=== PATIENT | female | born 1970 | race African-American/Black ===

== ENCOUNTER 2017-04-24 19:58 | Emergency (ER) | payer BC, MEDICARE ==
[2017-04-24 20:13] VITALS: RESP 18
[2017-04-24] MEDS ORDERED: ONDANSETRON ODT 8 MG TAB.RAPDIS PO STA (20:56)
[2017-04-24] MEDS ORDERED: SODIUM CHLORIDE 0.9% 1,000 ML IV STA (21:35)
[2017-04-24] MEDS ORDERED: ACETAMINOPHEN TAB 500 MG TAB PO STA (21:35)
[2017-04-24 21:36] LABS: Appearance,Urine Cloudy (Clear); Bilirubin,Urine Negative (Negative); Blood,Urine Small (Negative); Color,Urine Yellow; Glucose,Urine (UA) Negative (Negative); Ketones,Urine Trace (Negative); Leukocyte Esterase,Urine Negative (Negative); Mucus,Urine Rare /hpf; Protein,Urine 1+ (Negative); RBC,Urine 13 /hpf (0-5); Specific Gravity,Urine 1.016 (1.001-1.035); Squamous Epithelial Cell,Urine 13 /hpf (0-4); WBC,Urine 1 /hpf (0-5)
[2017-04-24 21:39] LABS: Basophils % (A) 0 %; Eosinophils # (A) 0.1 k/uL (0-0.7); Eosinophils % (A) 2 %; HCT 34.9 % (34.0-46.0); HGB 11.7 gm/dL (11.4-16.0); Lymphocytes # (A) 0.5 k/uL (1.0-4.8); Lymphocytes % (A) 11 %; MCH 31.1 pg (25.0-35.0); MCHC 33.6 g/dL (31.0-37.0); MCV 92.5 fL (80.0-100.0); Mean Platelet Volume 8.9; Monocytes # (A) 0.2 k/uL (0-1.0); Monocytes % (A) 4 %; Neutrophils # (A) 3.7 k/uL (1.3-7.7); Neutrophils % (A) 82 %; RBC 3.78 m/uL (3.80-5.40); RDW 12.3 % (11.5-15.5); WBC 4.6 k/uL (3.8-10.6)
--- NOTE | 2017-04-24 21:42 | ED ---
General Adult HPI - General Source: patient Mode of arrival: wheelchair Limitations: no limitations <Phoenix Lopez - Last Filed: 04/25/17 00:14> <Blas Morales - Last Filed: 04/25/17 07:08> - General Chief complaint: Abdominal Pain Stated complaint: vomiting Time Seen by Provider: 04/24/17 20:25 - History of Present Illness Initial comments: 47 year old female patient presents for chief complaint of epigastric abdominal pain for 3 hours. Patient states she felt nauseous preceding the pain, and then the pain started at 5pm. Patient states she vomited 5 times at home since this time. At this time she also felt feverish and had chills. Patient denies any pain in the back. Patient denies a history of gastric ulcers, cholecystitis, or liver disease. Patient states she does have a history of IBS but states she usually feels the pain lower in the abdomen. Patient denies any recent diarrhea , constipation, or blood in stool. Patient denies any other history of abdominal disease or family history of abdominal disease. Patient also states she's had a productive cough for the past 2 days. Patient states there are many people sick at work. She denies any shortness of breath or chest pain. Patient denies sore throat but does admit to some sinus congestion, which is causing her headache. Patient denies dizziness or lightheadedness. (Phoenix Lopez) - Related Data Home Medications Medication Instructions Recorded Confirmed Clindamycin HCl [Cleocin] 300 mg PO Q8H 04/24/17 04/24/17 Fluticasone/Vilanterol [Breo 1 puff INHALATION RT-DAILY 04/24/17 04/24/17 Ellipta 200-25 Mcg INH] guaiFENesin [Mucinex] 600 mg PO Q12H 04/24/17 04/24/17 methylPREDNISolone Dose Pack See Taper PO DAILY 04/24/17 04/24/17 [Medrol Dose Pack] Allergies Allergy/AdvReac Type Severity Reaction Status Date / Time cat dander Allergy Unknown Verified 04/24/17 21:26 fish derived Allergy Rash/Hives Verified 04/24/17 21:26 shellfish derived Allergy Anaphylaxis Verified 04/24/17 21:26 tramadol Allergy Itching Verified 04/24/17 21:26 Review of Systems ROS Other: All systems not noted in ROS Statement are negative. <Phoenix Lopez Mary - Last Filed: 04/25/17 00:14> ROS Other: All systems not noted in ROS Statement are negative. <Blas Morales - Last Filed: 04/25/17 07:08> ROS Statement: Those systems with pertinent positive or pertinent negative responses have been documented in the HPI. Past Medical History Past Medical History: Asthma, GERD/Reflux Additional Past Medical History / Comment(s): irritable bowel syndrome, arthriposis History of Any Multi-Drug Resistant Organisms: None Reported Past Surgical History: Tubal Ligation Additional Past Surgical History / Comment(s): Missing bicep muscles bilaterally 1974. Muscle was removed from stomach. EGD and colonoscopy 2013. Past Anesthesia/Blood Transfusion Reactions: No Reported Reaction Past Psychological History: No Psychological Hx Reported Smoking Status: Never smoker Past Alcohol Use History: None Reported Past Drug Use History: None Reported - Past Family History Father Family Medical History: Cancer <JohnAmandaPhoenix P - Last Filed: 04/25/17 00:14> General Exam Limitations: no limitations General appearance: alert, in no apparent distress Head exam: Present: atraumatic, normocephalic, normal inspection Eye exam: Absent: scleral icterus, conjunctival injection, periorbital swelling ENT exam: Present: normal exam, mucous membranes moist Neck exam: Present: normal inspection. Absent: tenderness, meningismus, lymphadenopathy Respiratory exam: Present: normal lung sounds bilaterally. Absent: respiratory distress, wheezes, rales, rhonchi, stridor Cardiovascular Exam: Present: regular rate, normal rhythm, normal heart sounds. Absent: systolic murmur, diastolic murmur, rubs, gallop, clicks GI/Abdominal exam: Present: soft, tenderness (Tenderness to palpation in the mid -epigastric region as well as the RUQ/LUQ. ), normal bowel sounds. Absent: distended, guarding, rebound, rigid Back exam: Present: normal inspection. Absent: CVA tenderness (R), CVA tenderness (L) Neurological exam: Present: alert, oriented X3, CN II-XII intact Psychiatric exam: Present: normal affect, normal mood Skin exam: Present: warm, dry, intact, normal color. Absent: rash <JohnPhoenix chilel Mary - Last Filed: 04/25/17 00:14> Vital Signs 04/24/17 04/24/17 04/24/17 20:05 21:35 23:46 Temperature 100.9 F H 101.3 F H 99.4 F Pulse Rate 109 H 97 95 Respiratory 18 18 Rate Blood Pressure 184/104 156/94 163/95 O2 Sat by Pulse 98 96 97 Oximetry Medical Decision Making - Lab Data Result diagrams: 04/24/17 21:10 04/24/17 21:10 <Phoenix Lopez - Last Filed: 04/25/17 00:14> - Lab Data Result diagrams: 04/24/17 21:10 04/24/17 21:10 <Blas Morales - Last Filed: 04/25/17 07:08> - Medical Decision Making 47-year-old female presents to the emergency department for abdominal pain 3 hours. Patient states she felt nauseous throughout the day and the pain came on suddenly around 5 PM. It started in the mid epigastric area and is also in the left and right upper quadrant. Patient states she has not experienced this pain before. She did vomit 5 times this evening and felt feverish and had chills. She has had a cough for the past 2 days as well. The cough is productive with yellow sputum. She states many people are sick at work. She denies shortness of breath or chest pain. Patient was given 4 mg of Zofran and a gram of Tylenol to help with the fever and nausea. 30 mg of Toradol was given for the pain in her abdomen as well as a headache she developed. Dr. Morales was consulted about this. She was also started on IV saline to treat for any dehydration due to vomiting. A chest x-ray was ordered to rule out pneumonia which came back within normal limits. Labs were ordered which showed a normal white count, as well as AST, ALTs, lipase within normal limits. CBC did show a platelet count of 50,000. Patient denies any lightheadedness or dizziness. Because of the nature of the presenting abdominal pain an ultrasound was ordered to scan her gallbladder which showed normal results. Patient's UA does show red blood cells. Patient denies any back or flank pain. Patient states she does not notice any blood in the toilet bowl but does notice it on the toilet paper. Patient believes she is spotting with menstrual blood as her periods are irregular and it is common for her to spot. A flu swab was ordered which came back positive for influenza A. It is likely that her symptoms are related to having the flu. Patient will be discharged with a directions of rest, drinking fluids to remain hydrated, and taking Tylenol to control the fever. Patient was not given Tamiflu as it has been shown to increase vomiting with minimal benefits. Patient agrees to follow up with primary care physician in 1-2 days for thrombocytopenia, flu symptoms, and abdominal pain. Patient was also told that the antibiotics and steroid given to her by a different provider will not help with symptoms of the flu and may make vomiting worse. Patient is also educated on using tylenol instead of ibuprofen due to thrombocytopenia. If symptoms worsen she is to return to the emergency department. (Phoenix Lopez) I saw this patient in conjunction with the physician assistant grocery store manager. I performed independent history and physical exam. Agree with case management. (Blas Morales) - Lab Data Lab Results 04/24/17 04/24/17 04/24/17 Range/Units 21:10 21:10 21:10 WBC 4.6 (3.8-10.6) k/uL RBC 3.78 L (3.80-5.40) m/uL Hgb 11.7 (11.4-16.0) gm/dL Hct 34.9 (34.0-46.0) % MCV 92.5 (80.0-100.0) fL MCH 31.1 (25.0-35.0) pg MCHC 33.6 (31.0-37.0) g/dL RDW 12.3 (11.5-15.5) % Plt Count 50 L* (150-450) k/uL Neutrophils % 82 % Lymphocytes % 11 % Monocytes % 4 % Eosinophils % 2 % Basophils % 0 % Neutrophils # 3.7 (1.3-7.7) k/uL Lymphocytes # 0.5 L (1.0-4.8) k/uL Monocytes # 0.2 (0-1.0) k/uL Eosinophils # 0.1 (0-0.7) k/uL Basophils # 0.0 (0-0.2) k/uL Sodium 134 L (137-145) mmol/L Potassium 4.3 (3.5-5.1) mmol/L Chloride 100 (98-107) mmol/L Carbon Dioxide 25 (22-30) mmol/L Anion Gap 9 mmol/L BUN 10 (7-17) mg/dL Creatinine 0.59 (0.52-1.04) mg/dL Est GFR (CKD-EPI)AfAm >90 (>60 ml/min/1.73 sqM) Est GFR (CKD-EPI)NonAf >90 (>60 ml/min/1.73 sqM) Glucose 116 H (74-99) mg/dL Calcium 9.5 (8.4-10.2) mg/dL Total Bilirubin 0.6 (0.2-1.3) mg/dL AST 26 (14-36) U/L ALT 26 (9-52) U/L Alkaline Phosphatase 89 (38-126) U/L Total Protein 7.6 (6.3-8.2) g/dL Albumin 4.0 (3.5-5.0) g/dL Amylase (30-110) U/L Lipase 71 (23-300) U/L Urine Color Yellow Urine Appearance Cloudy H (Clear) Urine pH 8.0 (5.0-8.0) Ur Specific Ripley 1.016 (1.001-1.035) Urine Protein 1+ H (Negative) Urine Glucose (UA) Negative (Negative) Urine Ketones Trace H (Negative) Urine Blood Small H (Negative) Urine Nitrite Negative (Negative) Urine Bilirubin Negative (Negative) Urine Urobilinogen 2.0 (<2.0) mg/dL Ur Leukocyte Esterase Negative (Negative) Urine RBC 13 H (0-5) /hpf Urine WBC 1 (0-5) /hpf Ur Squamous Epith Cells 13 H (0-4) /hpf Urine Mucus Rare H (None) /hpf Urine HCG, Qual (Not Detectd) Influenza Type A RNA (Not Detectd) Influenza Type B (PCR) (Not Detectd) 04/24/17 04/24/17 04/24/17 Range/Units 21:10 21:10 22:33 WBC (3.8-10.6) k/uL RBC (3.80-5.40) m/uL Hgb (11.4-16.0) gm/dL Hct (34.0-46.0) % MCV (80.0-100.0) fL MCH (25.0-35.0) pg MCHC (31.0-37.0) g/dL RDW (11.5-15.5) % Plt Count (150-450) k/uL Neutrophils % % Lymphocytes % % Monocytes % % Eosinophils % % Basophils % % Neutrophils # (1.3-7.7) k/uL Lymphocytes # (1.0-4.8) k/uL Monocytes # (0-1.0) k/uL Eosinophils # (0-0.7) k/uL Basophils # (0-0.2) k/uL Sodium (137-145) mmol/L Potassium (3.5-5.1) mmol/L Chloride (98-107) mmol/L Carbon Dioxide (22-30) mmol/L Anion Gap mmol/L BUN (7-17) mg/dL Creatinine (0.52-1.04) mg/dL Est GFR (CKD-EPI)AfAm (>60 ml/min/1.73 sqM) Est GFR (CKD-EPI)NonAf (>60 ml/min/1.73 sqM) Glucose (74-99) mg/dL Calcium (8.4-10.2) mg/dL Total Bilirubin (0.2-1.3) mg/dL AST (14-36) U/L ALT (9-52) U/L Alkaline Phosphatase (38-126) U/L Total Protein (6.3-8.2) g/dL Albumin (3.5-5.0) g/dL Amylase 57 (30-110) U/L Lipase (23-300) U/L Urine Color Urine Appearance (Clear) Urine pH (5.0-8.0) Ur Specific Ripley (1.001-1.035) Urine Protein (Negative) Urine Glucose (UA) (Negative) Urine Ketones (Negative) Urine Blood (Negative) Urine Nitrite (Negative) Urine Bilirubin (Negative) Urine Urobilinogen (<2.0) mg/dL Ur Leukocyte Esterase (Negative) Urine RBC (0-5) /hpf Urine WBC (0-5) /hpf Ur Squamous Epith Cells (0-4) /hpf Urine Mucus (None) /hpf Urine HCG, Qual Not Detected (Not Detectd) Influenza Type A RNA Detected H (Not Detectd) Influenza Type B (PCR) Not Detected (Not Detectd) Disposition Time of Disposition: 23:57 <Phoenix Lopez - Last Filed: 04/25/17 00:14> <Blas Morales - Last Filed: 04/25/17 07:08> Clinical Impression: Influenza A Disposition: HOME SELF-CARE Condition: Good Instructions: Influenza (ED) Additional Instructions: Please take Tylenol for pain relief and has a fever loss mitigation specialist. Please follow up with primary care provider regarding thrombocytopenia, abdominal pain, and flu symptoms. If symptoms worsen, please return to the emergency department. Referrals: Yamini Cerda MD [Primary Care Provider] - 1-2 days
[2017-04-24 21:43] LABS: ALT 26 U/L (9-52); AST 26 U/L (14-36); Alkaline Phosphatase 89 U/L (38-126); Anion Gap 9 mmol/L; Blood Urea Nitrogen 10 mg/dL (7-17); Calcium 9.5 mg/dL (8.4-10.2); Carbon Dioxide 25 mmol/L (22-30); Chloride 100 mmol/L (98-107); Glucose 116 mg/dL (74-99); Lipase 71 U/L (23-300); Potassium 4.3 mmol/L (3.5-5.1); Sodium 134 mmol/L (137-145); Total Bilirubin 0.6 mg/dL (0.2-1.3); Total Protein 7.6 g/dL (6.3-8.2)
[2017-04-24 21:48] LABS: Platelet Count 50 k/uL (150-450)
[2017-04-24] MEDS ORDERED: KETOROLAC 30 MG/ML 1 ML VIAL IVP STA (22:02)
--- NOTE | 2017-04-24 22:42 | XR ---
EXAMINATION TYPE: XR chest 2V DATE OF EXAM: 04/24/2017 COMPARISON: NONE HISTORY: Fever and cough TECHNIQUE: Frontal and lateral views of the chest are obtained. FINDINGS: Heart and mediastinum are normal. Lungs are clear. Diaphragm is normal. Bony thorax is int act. The pulmonary vascularity is normal. IMPRESSION: Normal chest. No change.
--- NOTE | 2017-04-24 23:29 | US ---
EXAMINATION TYPE: US abdomen limited DATE OF EXAM: 04/24/2017 COMPARISON: NONE CLINICAL HISTORY: Pain. RUQ pain EXAM MEASUREMENTS: Liver Length: 16 cm Gallbladder Wall: 0.27 cm CBD: 0.4 cm Right Kidney: 9.5 x 4.1 x 4.8 cm Pancreas: Tail obscured by overlying bowel gas Liver: Increased attenuation Gallbladder: No stones seen Evidence for sonographic Matias's sign: No CBD: wnl Right Kidney: No hydronephrosis or masses seen IMPRESSION: Negative exam. No gallstones or dilated ducts.
[2017-04-24 23:48] VITALS: BP 163/95; PULSE 95; TEMP 99.4
== END 2017-04-25 00:20 | disposition home or self-care (01) ==
LOC: EC 19:58
DX: J10.1 Influenza due to other identified influenza virus with other respiratory manifestations (principal); R10.13 Epigastric pain; J45.909 Unspecified asthma, uncomplicated; Z79.51 Long term (current) use of inhaled steroids; Z79.52 Long term (current) use of systemic steroids; Z79.899 Other long term (current) drug therapy; Z88.5 Allergy status to narcotic agent; Z91.013 Allergy to seafood; Z91.09 Other allergy status, other than to drugs and biological substances
CPT/HCPCS: 36415; 80053; 82150; 83690; 85025; 81001; 81025; 87502; 71046; 76705; 99284; 96374; 96361; J1885

== ENCOUNTER 2017-07-31 10:08 | Day surgery (SDC) | payer BC, MEDICARE ==
[2017-07-26 10:40] VITALS: BMI 38.4
[~2017-07-31 10:08] MED LIST: LACTATED RINGERS 1,000 ML IV SCH; LIDOCAINE 1% 20 ML VIAL (10MG/ML) FOR IV START INTRADERMA PRN
[2017-07-31 11:06] VITALS: RESP 16; TEMP 97.5
[2017-07-31] MEDS ORDERED: LIDOCAINE 1% INJ 10MG/ML (20 ML MDV) ONE (11:06)
[2017-07-31] MEDS ORDERED: PROPOFOL 10 MG/ML 20 ML VIAL IV ONE (11:06)
[2017-07-31] MEDS ORDERED: LACTATED RINGERS 1,000 ML IV ONE (11:06)
[2017-07-31 11:12] LABS: Glucose,Whole Blood 84 mg/dL (75-99)
--- NOTE | 2017-07-31 11:13 | P.GSHP ---
History of Present Illness H&P Date: 07/31/17 Chief Complaint: GERD, constipation This a 47-year-old female who has safer EGD colonoscopy. She's had issues with GERD and constipation. Past Medical History Past Medical History: Asthma, GERD/Reflux, Musculoskeletal Disorder, Osteoarthritis (OA) Additional Past Medical History / Comment(s): irritable bowel syndrome, sciatic pain History of Any Multi-Drug Resistant Organisms: None Reported Past Surgical History: Tubal Ligation Additional Past Surgical History / Comment(s): Missing bicep muscles bilaterally 1974. Muscle was removed from stomach. EGD and colonoscopy 2013. Past Anesthesia/Blood Transfusion Reactions: No Reported Reaction Additional Past Anesthesia/Blood Transfusion Reaction / Comment(s): doesn't require much sedation Smoking Status: Never smoker - Past Family History Father Family Medical History: Cancer Medications and Allergies Home Medications Medication Instructions Recorded Confirmed Type Fluticasone/Vilanterol [Breo 1 puff INHALATION RT-DAILY 04/24/17 07/26/17 History Ellipta 200-25 Mcg INH] EPINEPHrine (Auto Inject) [Epipen] 0.3 mg IM ONCE PRN 07/26/17 07/31/17 History Hyoscyamine Sulfate [Levsin] 0.125 mg PO DAILY PRN 07/26/17 07/26/17 History Meloxicam [Mobic] 15 mg PO DAILY 07/26/17 07/26/17 History methylPREDNISolone Dose Pack 4 mg PO DIRECTED 07/26/17 07/26/17 History [Medrol Dose Pack] Allergies Allergy/AdvReac Type Severity Reaction Status Date / Time cat dander Allergy Unknown Verified 07/31/17 10:28 fish derived Allergy Rash/Hives Verified 07/31/17 10:28 Iodinated Contrast- Oral and Allergy Unknown Verified 07/31/17 10:28 IV Dye shellfish derived Allergy Anaphylaxis Verified 07/31/17 10:28 tramadol Allergy throat Verified 07/31/17 10:28 swelling Surgical - Exam Vital Signs Temp Pulse Resp BP Pulse Ox 97.5 F L 90 16 161/96 96 07/31/17 11:04 07/31/17 11:04 07/31/17 11:04 07/31/17 11:04 07/31/17 11:04 - General well developed, no distress - Eyes PERRL - ENT normal pinna - Neck no masses - Respiratory normal expansion - Cardiovascular Rhythm: regular - Abdomen Abdomen: soft, non tender Assessment and Plan Assessment: GERD, constipation. We'll perform EGD colonoscopy.
--- NOTE | 2017-07-31 11:31 | P.OP ---
Date of Procedure: 07/31/17 Preoperative Diagnosis: GERD Constipation Postoperative Diagnosis: Antral gastritis Hiatal hernia Normal colonoscopy Procedure(s) Performed: EGD Colonoscopy Anesthesia: KHOI Surgeon: Rigo Cornell Pathology: none sent (Antral, esophagus) Condition: stable Disposition: PACU Description of Procedure: The patient's placed on the endoscopy table in the lateral position. She received IV sedation. The gastroscope placed oropharynx passed in the esophagus and into the stomach. Scope was then placed through the pylorus. First and second portion of the duodenum appeared normal. Scope was then brought back the antrum and this was mildly inflamed a biopsies performed. Scope was unretroflexed and remainder the stomach appeared normal. The patient had a moderate size hiatal hernia. The GE junction was at 38 cm. The distal esophagus appeared mildly inflamed a biopsies performed. The proximal esophagus appeared normal. Scope was withdrawn for patient. Next digital rectal exam was performed which revealed no abnormalities. Flexible colonoscope was then placed patient anus and passed throughout the entire colon. The ileocecal valve was visualized. The cecum, ascending and transverse colon appeared normal. The descending and sigmoid colon was normal. Scope was then brought back the rectum this appeared normal. Scope withdrawn for patient.
[2017-07-31 11:58] VITALS: BP 154/88; PULSE 59
== END 2017-07-31 12:16 | disposition home or self-care (01) ==
LOC: ORWHC2ENDO 10:08
PROVIDERS: ATTEND Surgery
DX: K29.50 Unspecified chronic gastritis without bleeding (principal); K21.9 Gastro-esophageal reflux disease without esophagitis; K44.9 Diaphragmatic hernia without obstruction or gangrene; K59.00 Constipation, unspecified; K58.9 Irritable bowel syndrome, unspecified; J45.909 Unspecified asthma, uncomplicated; M19.90 Unspecified osteoarthritis, unspecified site; Z79.51 Long term (current) use of inhaled steroids; Z79.52 Long term (current) use of systemic steroids; Z91.041 Radiographic dye allergy status; Z88.5 Allergy status to narcotic agent; Z91.013 Allergy to seafood; Z91.018 Allergy to other foods; Z91.09 Other allergy status, other than to drugs and biological substances
CPT/HCPCS: 81025; 88305; 45378; 43239; J2001; J2704

== ENCOUNTER → 2017-08-17 | Outpatient (CLI) | payer BC, MEDICARE ==
[2017-08-17 11:52] LABS: Basophils % (A) 1 %; Eosinophils # (A) 0.4 k/uL (0-0.7); Eosinophils % (A) 7 %; HCT 41.8 % (34.0-46.0); HGB 13.7 gm/dL (11.4-16.0); Lymphocytes # (A) 2.2 k/uL (1.0-4.8); Lymphocytes % (A) 41 %; MCH 31.3 pg (25.0-35.0); MCHC 32.8 g/dL (31.0-37.0); MCV 95.4 fL (80.0-100.0); Mean Platelet Volume 6.4; Monocytes # (A) 0.3 k/uL (0-1.0); Monocytes % (A) 6 %; Neutrophils # (A) 2.4 k/uL (1.3-7.7); Neutrophils % (A) 44 %; Platelet Count 377 k/uL (150-450); RBC 4.38 m/uL (3.80-5.40); RDW 12.7 % (11.5-15.5); WBC 5.4 k/uL (3.8-10.6)
== END | disposition home or self-care (01) ==
LOC: LABPAT 10:48
PROVIDERS: ATTEND Surgery
DX: Z01.818 Encounter for other preprocedural examination (principal); K21.9 Gastro-esophageal reflux disease without esophagitis; D64.9 Anemia, unspecified; F17.200 Nicotine dependence, unspecified, uncomplicated; Z01.812 Encounter for preprocedural laboratory examination
CPT/HCPCS: 36415; 85025; 93005

== ENCOUNTER 2017-08-23 07:45 | Inpatient (IN) | payer BC, MEDICARE ==
[2017-08-12 10:49] VITALS: BMI 37.8
[~2017-08-23 07:45] MED LIST changes: +DEXAMETHASONE SOD PHOSPHATE 10 MG/ML 1 ML VIAL IV ONE; +HEPARIN SODIUM,PORCINE 5,000 UNIT/ML 1 ML VIAL SQ ONE; +HYDROmorphone 0.5 MG/0.5 ML SYRINGE IVP PRN; -LACTATED RINGERS 1,000 ML IV SCH; +MIDAZOLAM 2 MG/2 ML VIAL IV PRN; +ONDANSETRON 4 MG/2 ML VIAL IVP ONE; +SCOPOLAMINE 1.5MG/72HR PATCH TRANSDERM ONE; +ceFAZolin IN SWFI 2 GM/20 ML SYRINGE IVP ONE
[2017-08-23] MEDS ORDERED: LACTATED RINGERS 1,000 ML IV ONE ×2 (08:42→11:34)
--- NOTE | 2017-08-23 09:24 | P.GSHP ---
History of Present Illness H&P Date: 08/23/17 Chief Complaint: GERD Some 47-year-old female who sees Dr. Roy as outpatient. The patient has had long-standing problems with reflux esophagitis. The patient underwent recent EGD is found have evidence of esophagitis. Patient has been well informed on the procedure of laparoscopic Indira fundoplication. The patient is aware the risk of the conversion to the open procedure, risk of injury to the stomach, liver and spleen. The patient is also a risk of recurrent GERD and dysphagia symptoms. The patient understands there is a postoperative diet of full liquids for 2 weeks after surgery. Past Medical History Past Medical History: Asthma, GERD/Reflux, Hypertension, Musculoskeletal Disorder, Osteoarthritis (OA) Additional Past Medical History / Comment(s): irritable bowel syndrome, sciatic pain, states hx of HTN in past, Environmental allergies., Hiatal Hernia., Difficult lab draw & IV start., States taking keflex for swelling on roof of her mouth- states improving and will complete medication prior to surgery. History of Any Multi-Drug Resistant Organisms: None Reported Past Surgical History: Tubal Ligation Additional Past Surgical History / Comment(s): Missing bicep muscles bilaterally & muscle was removed from stomach (1974). EGD and colonoscopy . Past Anesthesia/Blood Transfusion Reactions: No Reported Reaction Additional Past Anesthesia/Blood Transfusion Reaction / Comment(s): . Past Psychological History: No Psychological Hx Reported Additional Psychological History / Comment(s): ANXIOUS REGARDING SURGERY Smoking Status: Never smoker Past Alcohol Use History: None Reported Additional Past Alcohol Use History / Comment(s): exposed to 2nd hand smoke Past Drug Use History: None Reported - Past Family History Father Family Medical History: Cancer Medications and Allergies Home Medications Medication Instructions Recorded Confirmed Type Fluticasone/Vilanterol [Breo 1 puff INHALATION DAILY 04/24/17 08/12/17 History Ellipta 200-25 Mcg INH] EPINEPHrine (Auto Inject) [Epipen] 0.3 mg IM ONCE PRN 07/26/17 08/12/17 History Hyoscyamine Sulfate [Levsin] 0.125 mg PO DAILY PRN 07/26/17 08/12/17 History Albuterol Inhaler [Ventolin Hfa 1 - 2 puff INHALATION RT-Q6H PRN 08/12/17 History Inhaler] Cephalexin [Keflex] 500 mg PO Q8HR 08/12/17 08/12/17 History Allergies Allergy/AdvReac Type Severity Reaction Status Date / Time cat dander Allergy Unknown Verified 08/12/17 10:35 fish derived Allergy Rash/Hives Verified 08/12/17 10:35 Iodinated Contrast- Oral and Allergy Dyspnea Verified 08/12/17 10:53 IV Dye shellfish derived Allergy Anaphylaxis Verified 08/12/17 10:35 tramadol Allergy throat Verified 08/12/17 10:35 swelling Surgical - Exam Vital Signs Temp Pulse Resp BP Pulse Ox 97.7 F 76 18 198/102 97 08/23/17 08:33 08/23/17 08:33 08/23/17 08:33 08/23/17 08:33 08/23/17 08:33 - General well developed, no distress - Eyes PERRL - ENT normal pinna - Neck no masses - Respiratory normal expansion - Cardiovascular Rhythm: regular - Abdomen Abdomen: soft, non tender Assessment and Plan Assessment: GERD. We will perform laparoscopic Indira fundal plication.
[2017-08-23] MEDS ORDERED: MIDAZOLAM 2 MG/2 ML VIAL ONE (10:50)
[2017-08-23] MEDS ORDERED: ROCURONIUM BROMIDE 10 MG/ML 10 ML VIAL IV ONE (10:50)
[2017-08-23] MEDS ORDERED: fentaNYL (PF) 50 MCG/ML 2 ML AMP ONE (10:50)
[2017-08-23] MEDS ORDERED: KETOROLAC 30 MG/ML 1 ML VIAL ONE (10:50)
[2017-08-23] MEDS ORDERED: GLYCOPYRROLATE 0.2 MG/ML 2 ML VIAL ONE (10:50)
[2017-08-23] MEDS ORDERED: LIDOCAINE 1% INJ 10MG/ML (20 ML MDV) ONE (10:50)
[2017-08-23] MEDS ORDERED: NEOSTIGMINE 1 MG/ML 10 ML VIAL ONE (10:50)
[2017-08-23] MEDS ORDERED: PROPOFOL 10 MG/ML 20 ML VIAL IV ONE (10:50)
[2017-08-23] MEDS ORDERED: SUCCINYLCHOLINE CHLORIDE 100 MG/5 ML SYR IV ONE (10:50)
[2017-08-23] MEDS ORDERED: BUPIVACAINE (PF) 0.5% 30 ML VIAL SQ ONE (10:57)
[2017-08-23] MEDS: MORPHINE SULFATE 4MG/4ML SYRG IVP ONE ×2 (12:26→12:33)
[2017-08-23] MEDS ORDERED: hydrALAZINE HCL 20 MG/ML 1 ML VIAL IVP ONE (12:43)
[2017-08-23] MEDS: HYDROmorphone 0.5 MG/0.5 ML SYRINGE IVP PRN ×2 (14:01→17:55)
[2017-08-23] MEDS: ONDANSETRON 4 MG/2 ML VIAL IVP PRN ×2 (14:08→23:16)
[2017-08-23] MEDS ORDERED: ALBUTEROL NEBULIZED 2.5 MG/3 ML INHALATION PRN (14:56)
[2017-08-23] MEDS ORDERED: EPINEPHrine 1 MG/ML 1 ML AMP IM PRN (14:56)
[2017-08-23] MEDS ORDERED: HYOSCYAMINE SULFATE 0.125 MG TAB PO PRN (14:56)
[2017-08-23] MEDS: LACTATED RINGERS 1,000 ML IV SCH (15:29)
[2017-08-23] MEDS: D5-0.45% NACL WITH KCL 20MEQ/L 1,000 ML IV SCH ×2 (15:29→18:07)
[2017-08-23] MEDS: METOCLOPRAMIDE 5 MG/ML 2 ML VIAL IVP SCH (17:55)
[2017-08-23] MEDS: SYMBICORT 160-4.5 MCG INHALER INHALATION SCH (22:13)
--- NOTE | 2017-08-23 22:49 | P.CONS ---
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 Patient does have long-standing history of GERD and recently underwent EGD and is found to have evidence of esophagitis. Patient tolerated the surgery very well. Currently denied any complaints of chest pain or shortness of breath. Slightly nauseated. No vomiting. Pain is fairly controlled with medications. No headache or dizziness or lightheadedness. Review of Systems Constitutional: Patient denies any fever or chills . No generalized weakness or weight loss. Abdomen: Patient does have nausea and abdominal discomfort. No vomiting. Cardiovascular: Patient denies any chest pain or short of breath no palpitations. Respiratory: patient denied any cough is from production. No shortness of breath Neurologic: Patient denied any numbness or tingling headache. Musculoskeletal: Patient denies any complaints of joint swelling or deformity. Skin: Negative Psychiatric: Negative Endocrine: No heat or cold intolerance. No recent weight gain. Genitourinary: No dysuria or hematuria. All other 14 point ROS negative except the above Past Medical History Past Medical History: Asthma, GERD/Reflux, Hypertension, Musculoskeletal Disorder, Osteoarthritis (OA) Additional Past Medical History / Comment(s): irritable bowel syndrome, sciatic pain, states hx of HTN in past, Environmental allergies., Hiatal Hernia., Difficult lab draw & IV start., States taking keflex for swelling on roof of her mouth- states improving and will complete medication prior to surgery. History of Any Multi-Drug Resistant Organisms: None Reported Past Surgical History: Tubal Ligation Additional Past Surgical History / Comment(s): Missing bicep muscles bilaterally & muscle was removed from stomach (1974). EGD and colonoscopy . Past Anesthesia/Blood Transfusion Reactions: No Reported Reaction Additional Past Anesthesia/Blood Transfusion Reaction / Comm: . Past Psychological History: No Psychological Hx Reported Additional Psychological History / Comment(s): ANXIOUS REGARDING SURGERY Smoking Status: Never smoker Past Alcohol Use History: None Reported Additional Past Alcohol Use History / Comment(s): exposed to 2nd hand smoke Past Drug Use History: None Reported - Past Family History Father Family Medical History: Cancer Medications and Allergies Home Medications Medication Instructions Recorded Confirmed Type Fluticasone/Vilanterol [Breo 1 puff INHALATION RT-DAILY 04/24/17 08/23/17 History Ellipta 200-25 Mcg INH] EPINEPHrine (Auto Inject) [Epipen] 0.3 mg IM ONCE PRN 07/26/17 08/23/17 History Hyoscyamine Sulfate [Levsin] 0.125 mg PO DAILY PRN 07/26/17 08/23/17 History Albuterol Inhaler [Ventolin Hfa 1 - 2 puff INHALATION RT-Q6H PRN 08/12/17 History Inhaler] Cephalexin [Keflex] 500 mg PO Q8HR 08/12/17 08/23/17 History Allergies Allergy/AdvReac Type Severity Reaction Status Date / Time cat dander Allergy Unknown Verified 08/23/17 13:36 fish derived Allergy Rash/Hives Verified 08/23/17 13:36 Iodinated Contrast- Oral and Allergy Dyspnea Verified 08/23/17 13:36 IV Dye shellfish derived Allergy Anaphylaxis Verified 08/23/17 13:36 tramadol Allergy throat Verified 08/23/17 13:36 swelling Physical Exam Vitals: Vital Signs Temp Pulse Pulse Resp BP BP Pulse Ox 08/23/17 13:50 97.5 F L 81 16 143/78 95 08/23/17 13:30 76 16 143/88 98 08/23/17 13:15 74 16 126/66 98 08/23/17 13:02 70 16 129/70 97 08/23/17 12:46 71 16 149/89 98 08/23/17 12:39 163/101 08/23/17 12:32 79 16 172/100 99 08/23/17 12:11 96.8 F L 90 12 214/124 95 08/23/17 08:33 97.7 F 76 18 198/102 97 Intake and Output 08/22/17 08/23/17 08/23/17 22:59 06:59 14:59 Intake Total 1500 Output Total 5 Balance 1495 Intake: IV 1500 Output: Estimated Blood Loss 5 PHYSICAL EXAMINATION: Patient is lying in the bed comfortably, no acute distress, awake alert and oriented.. HEENT: Normocephalic. Neck is supple. Pupils reactive. Nostrils clear. Oral cavity is moist. Ears reveal no drainage. Neck reveals no JVD, carotid bruits, or thyromegaly. CHEST EXAMINATION: Trachea is central. Symmetrical expansion. Bibasilar diminished air entry. No wheezing now crackles. CARDIAC: Normal S1, S2 with no gallops. No murmurs ABDOMEN: Soft. Bowel sounds normal. No organomegaly. No abdominal bruits. Extremities: reveal no edema. No clubbing or cyanosis Neurologically awake, alert, oriented x3 with well-coordinated movements. No focal deficits noted Skin: No rash or skin lesions. Psychiatric: Coperative. 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 Normal range of motion. Assessment and Plan Assessment: Laparoscopic Indira fundoplication due to chronic GERD symptoms Asthma stable Hypertension controlled Musculoskeletal disorder history Congenital Missing bicep muscles bilaterally & muscle was removed from stomach (1974) Irritable bowel syndrome Sciatic pain ALLERGIES DVT prophylaxis Plan: Patient will be continued on IV hydration and pain management with bowel regimen. Continue with albuterol inhaler as needed. Continue with home medications and follow closely. Further recommendations based on the clinical course. Discussed with her family in detail at bedside. Thank you for your consult. Time with Patient: Greater than 30
[2017-08-24] MEDS: HYDROmorphone 0.5 MG/0.5 ML SYRINGE IVP PRN (00:09)
[2017-08-24] MEDS: METOCLOPRAMIDE 5 MG/ML 2 ML VIAL IVP SCH ×2 (00:09→05:38)
[2017-08-24] MEDS: LACTATED RINGERS 1,000 ML IV SCH (00:48)
[2017-08-24] MEDS: D5-0.45% NACL WITH KCL 20MEQ/L 1,000 ML IV SCH ×2 (02:24→09:40)
[2017-08-24] MEDS ORDERED: methylPREDNISolone SOD SUCCI 125 MG/2 ML VIAL IV STA (06:07)
[2017-08-24] MEDS ORDERED: diphenhydrAMINE 50 MG/ML 1 ML VIAL IVP STA (06:07)
[2017-08-24] MEDS ORDERED: FAMOTIDINE 20 MG/2 ML VIAL IV STA (06:07)
[2017-08-24 08:00] VITALS: PULSE 71; RESP 18; TEMP 98.1
[2017-08-24 08:05] LABS: Basophils % (A) 0 %; Eosinophils # (A) 0.1 k/uL (0-0.7); Eosinophils % (A) 1 %; HCT 38.7 % (34.0-46.0); HGB 13.3 gm/dL (11.4-16.0); Lymphocytes # (A) 1.7 k/uL (1.0-4.8); Lymphocytes % (A) 21 %; MCHC 34.4 g/dL (31.0-37.0); MCV 95.9 fL (80.0-100.0); Mean Platelet Volume 6.4; Monocytes # (A) 0.5 k/uL (0-1.0); Monocytes % (A) 6 %; Neutrophils # (A) 5.6 k/uL (1.3-7.7); Neutrophils % (A) 71 %; Platelet Count 273 k/uL (150-450); RBC 4.03 m/uL (3.80-5.40); RDW 13.3 % (11.5-15.5); WBC 7.9 k/uL (3.8-10.6)
--- NOTE | 2017-08-24 08:39 | FL ---
EXAMINATION TYPE: FL esophagus cervic/pharynx DATE OF EXAM ORDERED: 08/24/2017 8:32 AM HISTORY: Postop Kalpana fundoplication. COMPARISON: None. FINDINGS: The patient swallowed contrast with ease. The esophagus distended normally with contrast. There was prompt egress of contrast from the esophagus into the stomach. There is no evidence of extr avasation. There is no significant free air. The ligament of Treitz is in the normal location. IMPRESSION: STATUS POST KALPANA FUNDOPLICATION.
[2017-08-24 09:00] LABS: Anion Gap 10 mmol/L; Blood Urea Nitrogen 9 mg/dL (7-17); Calcium 8.7 mg/dL (8.4-10.2); Carbon Dioxide 23 mmol/L (22-30); Chloride 104 mmol/L (98-107); Glucose 110 mg/dL (74-99); Potassium 4.1 mmol/L (3.5-5.1); Sodium 137 mmol/L (137-145)
[2017-08-24] MEDS ORDERED: ENOXAPARIN 40 MG/0.4 ML SYRINGE SQ SCH (09:00)
[2017-08-24 10:53] VITALS: BP 152/90
[2017-08-24] MEDS: SYMBICORT 160-4.5 MCG INHALER INHALATION SCH (11:04)
--- NOTE | 2017-08-24 11:07 | P.DS ---
Providers Date of admission: 08/23/17 08:12 Expected date of discharge: 08/24/17 Attending physician: Rigo Cornell Consults: 08/23/17 12:07 Consult Physician Routine Consulting Provider: Endy Christianson Consult Reason/Comments: Medical management Do you want consulting provider notified?: Yes Primary care physician: Yamini [facility] Course: This a 47-year-old female who underwent laparoscopic Indira fundoplication. Patient did well postoperative. Please see hospital chart for details. Pertinent Studies: Esophagram Procedures: Laparoscopic Indira fundal plication Patient Condition at Discharge: Good Plan - Discharge Summary Discharge Rx Participant: Yes New Discharge Prescriptions: New Docusate [Colace] 100 mg PO BID #20 capsule HYDROcodone/APAP 7.5-325MG [[place] 7.5-325] 1 tab PO Q4H PRN 3 Days #18 tab PRN Reason: Pain No Action Fluticasone/Vilanterol [Breo Ellipta 200-25 Mcg INH] 1 puff INHALATION RT- DAILY Hyoscyamine Sulfate [Levsin] 0.125 mg PO DAILY PRN PRN Reason: irritable bowel EPINEPHrine (Auto Inject) [Epipen] 0.3 mg IM ONCE PRN PRN Reason: Anaphylaxis Albuterol Inhaler [Ventolin Hfa Inhaler] 1 - 2 puff INHALATION RT-Q6H PRN PRN Reason: Shortness Of Breath Cephalexin [Keflex] 500 mg PO Q8HR Discharge Medication List Fluticasone/Vilanterol [Breo Ellipta 200-25 Mcg INH] 1 puff INHALATION RT-DAILY 04/24/17 [History] EPINEPHrine (Auto Inject) [Epipen] 0.3 mg IM ONCE PRN 07/26/17 [History] Hyoscyamine Sulfate [Levsin] 0.125 mg PO DAILY PRN 07/26/17 [History] Albuterol Inhaler [Ventolin Hfa Inhaler] 1 - 2 puff INHALATION RT-Q6H PRN [History] Cephalexin [Keflex] 500 mg PO Q8HR 08/12/17 [History] Docusate [Colace] 100 mg PO BID #20 capsule 08/24/17 [Rx] HYDROcodone/APAP 7.5-325MG [[place] 7.5-325] 1 tab PO Q4H PRN 3 Days #18 tab 08/24 [Rx] Follow up Appointment(s)/Referral(s): Rigo Cornell MD [STAFF PHYSICIAN] - 09/06/17 11:00 am (OFFICE CLOSED AT TIME OF DISCHARGE, PATIENT TO CALL AND MAKE FOLLOW UP APPOINTMENT) Patient Instructions/Handouts: Hydrocodone/Acetaminophen (By mouth), Laxative, Stool Softeners (By mouth), Pain Management After Surgery (DC), Adult Laparoscopic Indira Fundoplication (DC), Gastroesophageal Reflux Disease (DC) Discharge Disposition: HOME SELF-CARE
--- NOTE | 2017-08-24 22:36 | P.PN ---
Subjective Progress Note Date: 08/24/17 Principal diagnosis: Status post Indira fundoplication surgery Patient is a 46-year-old female with a known history of musculoskeletal disorder chronic right upper extremities hypoplastic, irritable bowel syndrome and hiatal hernia was admitted to the hospital for elective laparoscopic Indira fundoplication. Patient does have long-standing history of GERD and recently underwent EGD and is found to have evidence of esophagitis. Patient tolerated the surgery very well. Currently denied any complaints of chest pain or shortness of breath. Slightly nauseated. No vomiting. Pain is fairly controlled with medications. No headache or dizziness or lightheadedness. 08/24/2017 Patient denied any complaints of chest pain. Shortness of breath is much improved. No complaints of abdominal pain. Pain is well controlled with medications. Otherwise patient had upper GI series showed no evidence of leak. Patient is being discharged home today. Discharge medication reconciliation was done. All other review of systems negative except the above Objective - Vital Signs Vital signs: Vital Signs Temp 98.1 F 08/24/17 07:45 Pulse 71 08/24/17 10:54 Resp 18 08/24/17 07:45 BP 152/90 08/24/17 10:54 Pulse Ox 99 08/24/17 07:45 Intake & Output 08/23/17 08/24/17 08/24/17 18:59 06:59 18:59 Intake Total 1500 1710 Output Total 5 Balance 1495 1710 Weight 93.894 kg Intake: IV 1500 Intake, IV Titration 1000 Amount D5-0.45% NaCl with KCl 1000 20Meq/l 1,000 ml @ 125 mls/hr IV .Q8H [facility] Rx#: [id number] Oral 710 Output: Estimated Blood Loss 5 Other: Voiding Method Toilet Toilet Toilet # Voids 2 - Exam Patient is lying in the bed comfortably, no acute distress, awake alert and oriented.. HEENT: Normocephalic. Neck is supple. Pupils reactive. Nostrils clear. Oral cavity is moist. Ears reveal no drainage. Neck reveals no JVD, carotid bruits, or thyromegaly. CHEST EXAMINATION: Trachea is central. Symmetrical expansion. Bibasilar diminished air entry. No wheezing or crackles. CARDIAC: Normal S1, S2 with no gallops. No murmurs ABDOMEN: Soft. Bowel sounds normal. No organomegaly. No abdominal bruits. Extremities: reveal no edema. No clubbing or cyanosis Neurologically awake, alert, oriented x3 with well-coordinated movements. No focal deficits noted Skin: No rash or skin lesions. Psychiatric: Coperative. 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 Normal range of motion. 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 Continue with albuterol inhaler as needed. Continue with home medications and follow closely. Patient is being discharged home today. Discussed with her family in detail at bedside. Thank you for your consult. Time with Patient: Greater than 30
== END 2017-08-24 11:26 | disposition home or self-care (01) | DRG 328 ==
LOC: 2ORMAIN 08:12 → 6PED 12:08 → 5MS5E 13:26
PROVIDERS: ADMIT Surgery; ATTEND Surgery
PROC: 0DV44ZZ Restriction of Esophagogastric Junction, Percutaneous Endoscopic Approach (ICD-10-PCS; principal; 2017-08-24)
DX: K21.9 Gastro-esophageal reflux disease without esophagitis (principal); J45.909 Unspecified asthma, uncomplicated; I10 Essential (primary) hypertension; K58.9 Irritable bowel syndrome, unspecified; M54.30 Sciatica, unspecified side; M19.90 Unspecified osteoarthritis, unspecified site; Z98.51 Tubal ligation status; Z79.51 Long term (current) use of inhaled steroids; Z79.899 Other long term (current) drug therapy
CPT/HCPCS: 74210; 80048; 81025; 85025; 86850; 86900; 86901; 94640

== ENCOUNTER → 2018-02-03 | Outpatient (CLI) | payer BC ==
--- NOTE | 2018-02-03 11:49 | CT ---
EXAMINATION TYPE: CT abdomen pelvis wo con DATE OF EXAM: 02/03/2018 HISTORY: Diverticulosis per order. CT DLP: 1022 mGycm. Automated Exposure Control for Dose Reduction was Utilized. TECHNIQUE: CT scan of the abdomen and pelvis is performed with oral but without IV contrast. IV cont rast cannot be given because despite multiple attempts venous access with catheter was not obtained COMPARISON: Ultrasound abdomen limited April 24, 2017 FINDINGS: Within the limitations of a non-contrast study, the following observations are made. LUNG BASES: No significant abnormality is appreciated. LIVER/GB: No significant abnormality is appreciated. PANCREAS: No significant abnormality is seen. SPLEEN: No significant abnormality is seen. ADRENALS: No significant abnormality is seen. KIDNEYS: No renal calculi or hydronephrosis is present bilaterally. BOWEL: Small hiatal hernia is present. No oral contrast reaches level of the distal transverse colon. There is no suspicious small or large bowel dilatation. Appendix is not visualized and presumed surg ically absent. No inflammatory change at base of cecum is appreciated. No significant diverticulosis or acute diverticulitis is present. GENITAL ORGANS: Uterus is anteverted in shape extending to the right of midline. There is lobulated c ontour particularly along left mid to inferior aspect causing mass effect on the endometrium felt to reflect a roughly 5 cm fibroid axial image 71. Some scattered pelvic phleboliths are seen. No suspici ous adnexal masses are noted. LYMPH NODES: No greater than 1cm abdominal or pelvic lymph nodes are appreciated. OSSEOUS STRUCTURES: There is transitional type L5 vertebra. OTHER: No significant additional abnormality is seen. IMPRESSION: No significant diverticulosis or acute diverticulitis.
== END ==
LOC: RADCTMAIN 10:24
PROVIDERS: ATTEND Surgery
DX: K57.30 Diverticulosis of large intestine without perforation or abscess without bleeding (principal); K57.92 Diverticulitis of intestine, part unspecified, without perforation or abscess without bleeding
CPT/HCPCS: 74176

== ENCOUNTER 2020-07-10 22:23 | Emergency (ER) | payer BC ==
[2020-07-10 22:42] VITALS: BP 168/99; PULSE 88; RESP 20; TEMP 98.1
--- NOTE | 2020-07-10 23:29 | XR ---
EXAMINATION TYPE: XR knee complete LT DATE OF EXAM: 07/10/2020 COMPARISON: NONE HISTORY: Knee pain TECHNIQUE: 3 views FINDINGS: I see no fracture nor dislocation. There is no evidence of any significant joint effusion. Joint spaces are fairly normal. IMPRESSION: Negative left knee exam.
[2020-07-10] MEDS ORDERED: IBUPROFEN 800 MG TAB PO STA (23:46)
--- NOTE | 2020-07-10 23:54 | ED ---
Lower Extremity Injury HPI - General Chief Complaint: Extremity Injury, Lower Stated Complaint: leg swelling Time Seen by Provider: 07/10/20 22:53 Source: patient, RN notes reviewed Mode of arrival: ambulatory Limitations: no limitations - History of Present Illness Initial Comments: 50-year-old pleasant black female that presents to the emergency room with 1 week of left knee pain. Patient states has been trying to lose weight and has been walking significantly more than usual. Patient states she has also been doing a lot of squats now feels like her left knee is swollen. Patient denies any previous injuries to the knee. He states has history of asthma as well controlled, GERD, hypertension, and osteoarthritis. 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 Patient denies nausea vomiting diarrhea. Patient describes pain as ache and 6 out of 10 pain MD Complaint: knee injury -: week(s) (1) Place: street/outdoors Severity scale (1-10): 6 Context: walking - Related Data Home Medications Medication Instructions Recorded Confirmed Fluticasone/Vilanterol [Breo 1 puff INHALATION RT-DAILY 04/24/17 07/10/20 Ellipta 200-25 Mcg INH] EPINEPHrine (Auto Inject) [Epipen] 0.3 mg IM ONCE PRN 07/26/17 07/10/20 Hyoscyamine Sulfate [Levsin] 0.125 mg PO Q6H PRN 07/26/17 07/10/20 Acetaminophen Tab [Tylenol Tab] 500 mg PO Q6H PRN 07/10/20 07/10/20 Albuterol Inhaler [Ventolin Hfa 2 puff INHALATION RT-QID PRN 07/10/20 07/10/20 Inhaler] Albuterol Nebulized [Ventolin 2.5 mg INHALATION RT-QID PRN 07/10/20 07/10/20 Nebulized] Previous Rx's Medication Instructions Recorded Ibuprofen [Motrin] 600 mg PO Q8HR PRN #30 tab 07/10/20 Allergies Allergy/AdvReac Type Severity Reaction Status Date / Time cat dander Allergy Unknown Verified 07/10/20 23:30 fish derived Allergy Rash/Hives Verified 07/10/20 23:30 Iodinated Contrast Media Allergy Dyspnea Verified 07/10/20 23:30 [Iodinated Contrast- Oral and IV Dye] shellfish derived Allergy Anaphylaxis Verified 07/10/20 23:30 tramadol Allergy throat Verified 07/10/20 23:30 swelling Review of Systems ROS Statement: Those systems with pertinent positive or pertinent negative responses have been documented in the HPI. ROS Other: All systems not noted in ROS Statement are negative. Past Medical History Past Medical History: Asthma, GERD/Reflux, Hypertension, Musculoskeletal Disorder, Osteoarthritis (OA) Additional Past Medical History / Comment(s): irritable bowel syndrome, sciatic pain, states hx of HTN in past, Environmental allergies., Hiatal Hernia., Difficult lab draw & IV start., States taking keflex for swelling on roof of her mouth- states improving and will complete medication prior to surgery. History of Any Multi-Drug Resistant Organisms: None Reported Past Surgical History: Tubal Ligation Additional Past Surgical History / Comment(s): Missing bicep muscles bilaterally & muscle was removed from stomach (1974). EGD and colonoscopy . Past Anesthesia/Blood Transfusion Reactions: No Reported Reaction Additional Past Anesthesia/Blood Transfusion Reaction / Comment(s): . Past Psychological History: No Psychological Hx Reported Smoking Status: Never smoker Past Alcohol Use History: None Reported Past Drug Use History: None Reported - Past Family History Father Family Medical History: Cancer General Exam Limitations: no limitations General appearance: alert, in no apparent distress Head exam: Present: atraumatic, normocephalic, normal inspection Eye exam: Present: normal appearance, PERRL, EOMI. Absent: scleral icterus, conjunctival injection, periorbital swelling ENT exam: Present: normal exam, normal oropharynx, mucous membranes moist Neck exam: Present: normal inspection, full ROM. Absent: tenderness, meningismus, lymphadenopathy Respiratory exam: Present: normal lung sounds bilaterally. Absent: respiratory distress, wheezes, rales, rhonchi, stridor, chest wall tenderness, accessory muscle use, decreased breath sounds Cardiovascular Exam: Present: regular rate, normal rhythm, normal heart sounds. Absent: systolic murmur, diastolic murmur, rubs, gallop, clicks GI/Abdominal exam: Present: soft. Absent: distended, tenderness, guarding, rebound, rigid Left Knee exam: Present: normal inspection, full ROM, tenderness, swelling (Anterior lateral to the patella), full knee extension. Absent: abrasion, laceration, ecchymosis, deformity, crepitus, dislocation, erythema, effusion Lower Leg exam: Present: normal inspection Ankle exam: Present: full ROM, swelling. Absent: tenderness, abrasion, laceration, ecchymosis, deformity, dislocation, erythema Neurovascular tendon exam: Present: no vascular compromise. Absent: pulse deficit, abnormal cap refill, motor deficit, sensory deficit, tendon deficit, extremity cold to touch, pallor, foot drop Gait: observed and normal Back exam: Absent: tenderness, CVA tenderness (R), CVA tenderness (L), muscle spasm, paraspinal tenderness, vertebral tenderness Neurological exam: Present: alert, oriented X3, CN II-XII intact Psychiatric exam: Present: normal affect, normal mood Skin exam: Present: warm, dry, intact, normal color. Absent: rash Course Vital Signs 07/10/20 22:34 Temperature 98.1 F Pulse Rate 88 Respiratory 20 Rate Blood Pressure 168/99 O2 Sat by Pulse 99 Oximetry Medical Decision Making - Medical Decision Making X-ray of left knee shows no fracture, dislocation or effusion. There is no erythema. Patient able to bear weight. Lavelle wrap applied. Patient discharged home to follow up with primary care doctor. Patient agreeable to this plan. Case discussed withDr Stiles. Disposition Clinical Impression: Knee strain Disposition: HOME SELF-CARE Condition: Good Instructions (If sedation given, give patient instructions): Knee Pain (ED) Additional Instructions: Take medication as prescribed, purchase compression stockings. Wear Lavelle wrap only when ambulating and do not wear with compression stockings. Follow-up with the primary care doctor in 1 week if pain is not resolved. Prescriptions: Ibuprofen [Motrin] 600 mg PO Q8HR PRN #30 tab PRN Reason: Pain Is patient prescribed a controlled substance at d/c from ED?: No Referrals: Enrique Recinos MD [Primary Care Provider] - 1-2 days Time of Disposition: 23:54
== END 2020-07-11 00:01 | disposition home or self-care (01) ==
LOC: EC 22:23
DX: S86.912A Strain of unspecified muscle(s) and tendon(s) at lower leg level, left leg, initial encounter (principal); J45.909 Unspecified asthma, uncomplicated; K21.9 Gastro-esophageal reflux disease without esophagitis; I10 Essential (primary) hypertension; M19.90 Unspecified osteoarthritis, unspecified site; Z79.899 Other long term (current) drug therapy; X58.XXXA Exposure to other specified factors, initial encounter; Y93.01 Activity, walking, marching and hiking
CPT/HCPCS: 99283

== ENCOUNTER 2020-08-05 06:58 | Day surgery (SDC) | payer BC ==
[2020-08-03 16:25] VITALS: BMI 40.4
[~2020-08-05 06:58] MED LIST changes: -DEXAMETHASONE SOD PHOSPHATE 10 MG/ML 1 ML VIAL IV ONE; +DEXAMETHASONE SOD PHOSPHATE 4 MG/ML 1 ML VIAL IV ONE; -HEPARIN SODIUM,PORCINE 5,000 UNIT/ML 1 ML VIAL SQ ONE; -HYDROmorphone 0.5 MG/0.5 ML SYRINGE IVP PRN; +LACTATED RINGERS 1,000 ML IV SCH; -LIDOCAINE 1% 20 ML VIAL (10MG/ML) FOR IV START INTRADERMA PRN; +Pre Op ABX Message 1 EACH MISC MISCELLANE ONE; -ceFAZolin IN SWFI 2 GM/20 ML SYRINGE IVP ONE
[2020-08-05] MEDS ORDERED: fentaNYL (PF) 50 MCG/ML 2 ML AMP IV PRN (07:00)
--- NOTE | 2020-08-05 07:24 | P.HPOB ---
History of Present Illness H&P Date: 08/05/20 Chief Complaint: menorrhagia 50 year old presents for D&C hysteroscopy and endometrial ablation with [employer]. Review of Systems All systems: negative Constitutional: Denies chills, Denies fever Eyes: denies blurred vision, denies pain Ears, nose, mouth and throat: Denies headache, Denies sore throat Cardiovascular: Denies chest pain, Denies shortness of breath Respiratory: Denies cough Gastrointestinal: Denies abdominal pain, Denies diarrhea, Denies nausea, Denies vomiting Genitourinary: Denies dysuria, Denies hematuria Musculoskeletal: Denies myalgias Integumentary: Denies pruritus, Denies rash Neurological: Denies numbness, Denies weakness Psychiatric: Denies anxiety, Denies depression Endocrine: Denies fatigue, Denies weight change Past Medical History Past Medical History: Asthma, GERD/Reflux, Hypertension, Musculoskeletal Disorder, Osteoarthritis (OA) Additional Past Medical History / Comment(s): irritable bowel syndrome, sciatic pain, states hx of HTN in past, Environmental allergies., Hiatal Hernia., heavy vaginal bleeding uterine fibroids History of Any Multi-Drug Resistant Organisms: None Reported Past Surgical History: Tubal Ligation Additional Past Surgical History / Comment(s): Missing bicep muscles bilaterally & muscle was removed from stomach (1974). EGD and colonoscopy . Past Anesthesia/Blood Transfusion Reactions: No Reported Reaction Additional Past Anesthesia/Blood Transfusion Reaction / Comment(s): slow to wake up after anesthesia Smoking Status: Never smoker - Past Family History Father Family Medical History: Cancer, Myocardial Infarction ([place]) Additional Family Medical History / Comment(s): Mother Family Medical History: Myocardial Infarction ([place]) Additional Family Medical History / Comment(s): Sister(s) Family Medical History: Cancer Additional Family Medical History / Comment(s): age 17 stomach cancer Medications and Allergies Home Medications Medication Instructions Recorded Confirmed Type Fluticasone/Vilanterol [Breo 1 puff INHALATION RT-DAILY 04/24/17 08/05/20 History Ellipta 200-25 Mcg INH] Hyoscyamine Sulfate [Levsin] 0.125 mg PO Q6H PRN 07/26/17 08/05/20 History Acetaminophen Tab [Tylenol Tab] 500 mg PO Q6H PRN 07/10/20 08/03/20 History Albuterol Inhaler [Ventolin Hfa 2 puff INHALATION RT-QID PRN 07/10/20 08/03/20 History Inhaler] Albuterol Nebulized [Ventolin 2.5 mg INHALATION RT-QID PRN 07/10/20 08/03/20 History Nebulized] Ibuprofen [Motrin] 600 mg PO Q8HR PRN #30 tab 07/10/20 08/03/20 Rx Allergies Allergy/AdvReac Type Severity Reaction Status Date / Time cat dander Allergy Unknown Verified 08/05/20 07:16 fish derived Allergy Rash/Hives Verified 08/05/20 07:16 Iodinated Contrast Media Allergy Dyspnea Verified 08/05/20 07:16 [Iodinated Contrast- Oral and IV Dye] shellfish derived Allergy Anaphylaxis Verified 08/05/20 07:16 tramadol Allergy throat Verified 08/05/20 07:16 swelling Exam Osteopathic Statement: *. No significant issues noted on an osteopathic structural exam other than those noted in the History and Physical/Consult. Intake and Output 08/04/20 08/05/20 08/05/20 22:59 06:59 14:59 Other: Weight 101.7 kg Heart: Regular rate and rhythm Lungs: Clear to auscultation bilaterally Abdomen: Soft, nontender Extremities: Negative Homans sign Assessment and Plan (1) Menometrorrhagia Current Visit: Yes Status: Acute Code(s): N92.1 - EXCESSIVE AND FREQUENT MENSTRUATION WITH IRREGULAR CYCLE SNOMED Code(s): 170166050 Plan: D&C hysteroscopy endometrial ablation with [employer]
[2020-08-05] MEDS ORDERED: SUCCINYLCHOLINE CHLORIDE 100 MG/5 ML SYR IV ONE (07:56)
[2020-08-05] MEDS ORDERED: LIDOCAINE 1% INJ 10MG/ML (20 ML MDV) ONE (07:56)
[2020-08-05] MEDS ORDERED: MIDAZOLAM 2 MG/2 ML VIAL ONE (07:56)
[2020-08-05] MEDS ORDERED: fentaNYL (PF) 50 MCG/ML 2 ML AMP ONE (07:56)
[2020-08-05] MEDS ORDERED: ALBUTEROL HFA INHALER INHALATION ONE (07:56)
[2020-08-05] MEDS ORDERED: PROPOFOL 10 MG/ML 20 ML VIAL IV ONE (07:56)
[2020-08-05 08:01] LABS: HCT 38.6 % (34.0-46.0); HGB 13.1 gm/dL (11.4-16.0); MCH 31.3 pg (25.0-35.0); MCV 92.2 fL (80.0-100.0); Mean Platelet Volume 6.9; Platelet Count 366 k/uL (150-450); RBC 4.19 m/uL (3.80-5.40); RDW 12.5 % (11.5-15.5)
[2020-08-05] MEDS ORDERED: LIDOCAINE 1% INJ 10MG/ML (20 ML MDV) SQ ONE (08:15)
[2020-08-05 08:48] VITALS: TEMP 96.9
[2020-08-05] MEDS ORDERED: KETOROLAC 15 MG/ML 1 ML VIAL IVP ONE (09:00)
[2020-08-05 09:58] VITALS: RESP 16
[2020-08-05 10:17] VITALS: BP 115/71
[2020-08-05] MEDS ORDERED: ONDANSETRON 4 MG/2 ML VIAL ONE (10:31)
[2020-08-05] MEDS ORDERED: ONDANSETRON 4 MG/2 ML VIAL IVP ONE ×2 (10:33)
[2020-08-05] MEDS ORDERED: IBUPROFEN 200 MG TAB PO ONE ×2 (10:34→10:44)
[2020-08-05 10:46] VITALS: PULSE 66
--- NOTE | 2020-09-02 21:50 | P.OP ---
Date of Procedure: 08/05/20 Preoperative Diagnosis: 1. Menorrhagia 2. skin tag Postoperative Diagnosis: 1. Menorrhagia 2. skin tag Procedure(s) Performed: D&C, hysteroscopy, endometrial ablation with NovaSure and removal of skin tag Anesthesia: KHOI Surgeon: Kayla Nelson Estimated Blood Loss (ml): 5 IV fluids (ml): 300 Urine output (ml): 20 Pathology: other (endometrial currettings and skin tag) Condition: stable Disposition: PACU Operative Findings: Uterus sounded to 10 cm, cavity length was 6.5 cm, width 3.5 cm, temp ablation 44 seconds at 121 W. adequate ablation after NovaSure Description of Procedure: Patient is taken the operating room where general anesthesia was obtained without difficulty. She was prepped and draped in normal sterile fashion dorsal lithotomy position, legs placed in the [place] cane stirrups. Bladder was drained of all urine. Weighted speculum placed in the vagina and the anterior lip the cervix was grasped with serial tooth tenaculum. The uterus sounded to 10 cm and the cervix under 3.5 cm making the cavity length 6.5 cm. The cervix was dilated to #8 Hegar dilator. Hysteroscopy was then performed. Both ostia were visualized and there was a smooth contour of the uterus. Sharp curet was then gently used to obtain endometrial curettings. The NovaSure was introduced into the uterus with a cavity length of 6.5 cm, width 3.5 cm. after cavity assessment was passed, the time of ablation was 44 seconds at 120 W. Hysteroscopy was again performed and adequate ablation was noted. All instruments removed from the vagina. I then infiltrated the skin beneath the skin tag with 0.25 percent plain lidocaine. Remove the skin tag with the scalpel. Stitches were placed. Patient tolerated the procedure well, sponge and instrument counts were correct 2 and she was taken to recovery in stable condition.
== END 2020-08-05 11:30 | disposition home or self-care (01) ==
LOC: OR 06:58
PROVIDERS: ATTEND Obstetrics & Gynecology
DX: C55 Malignant neoplasm of uterus, part unspecified (principal); I10 Essential (primary) hypertension; N92.0 Excessive and frequent menstruation with regular cycle; M19.90 Unspecified osteoarthritis, unspecified site; D17.79 Benign lipomatous neoplasm of other sites; J45.909 Unspecified asthma, uncomplicated; Z79.899 Other long term (current) drug therapy; Z91.041 Radiographic dye allergy status; Z88.5 Allergy status to narcotic agent; Z91.013 Allergy to seafood; K58.9 Irritable bowel syndrome, unspecified; K44.9 Diaphragmatic hernia without obstruction or gangrene
CPT/HCPCS: 58563; 81025; 88304; 88305; 85027; 11200; J2250; J1100; J2405; J2001; J3010; J1885; J0330; J2704

== ENCOUNTER → 2020-08-31 | Outpatient (CLI) | payer BC | END | disposition home or self-care (01) | LOC: LABWHC1 14:37 | PROVIDERS: ATTEND Obstetrics & Gynecology | DX: Z20.822 Contact with and (suspected) exposure to COVID-19 (principal) | CPT/HCPCS: U0003; C9803; U0005 ==

== ENCOUNTER → 2020-09-02 | Outpatient (CLI) | payer BC ==
[2020-09-02 16:23] LABS: Basophils # (A) 0.1 k/uL (0-0.2); Basophils % (A) 1 %; Eosinophils # (A) 0.3 k/uL (0-0.7); Eosinophils % (A) 5 %; HCT 39.1 % (34.0-46.0); HGB 13.2 gm/dL (11.4-16.0); Lymphocytes % (A) 44 %; MCH 31.9 pg (25.0-35.0); MCHC 33.7 g/dL (31.0-37.0); MCV 94.5 fL (80.0-100.0); Mean Platelet Volume 6.8; Monocytes # (A) 0.4 k/uL (0-1.0); Monocytes % (A) 5 %; Neutrophils # (A) 2.9 k/uL (1.3-7.7); Neutrophils % (A) 43 %; Platelet Count 374 k/uL (150-450); RBC 4.14 m/uL (3.80-5.40); RDW 12.6 % (11.5-15.5); WBC 6.8 k/uL (3.8-10.6)
[2020-09-02 16:33] LABS: Appearance,Urine Turbid (Clear); Bacteria,Urine Rare /hpf; Bilirubin,Urine Negative (Negative); Blood,Urine Large (Negative); Color,Urine Yellow; Glucose,Urine (UA) Negative (Negative); Ketones,Urine Negative (Negative); Leukocyte Esterase,Urine Moderate (Negative); Mucus,Urine Rare /hpf; Nitrite,Urine Negative (Negative); Protein,Urine Trace (Negative); RBC,Urine 3 /hpf (0-5); Specific Gravity,Urine 1.016 (1.001-1.035); Squamous Epithelial Cell,Urine 88 /hpf (0-4); Urobilinogen,Urine <2.0 mg/dL (<2.0); WBC,Urine 4 /hpf (0-5)
[2020-09-02 16:34] LABS: ALT 21 U/L (4-34); AST 31 U/L (14-36); African American GFR (CKD) >90 (>60 ml/min/1.73 sqM); Albumin 4.3 g/dL (3.5-5.0); Alkaline Phosphatase 90 U/L (38-126); Anion Gap 10 mmol/L; Blood Urea Nitrogen 10 mg/dL (7-17); Calcium 9.4 mg/dL (8.4-10.2); Carbon Dioxide 25 mmol/L (22-30); Chloride 104 mmol/L (98-107); Glucose 79 mg/dL (74-99); Non-African American GFR(CKD) >90 (>60 ml/min/1.73 sqM); Prothrombin Time 10.4 sec (9.0-12.0); Sodium 139 mmol/L (137-145); Total Bilirubin 0.5 mg/dL (0.2-1.3); Total Protein 7.9 g/dL (6.3-8.2)
--- NOTE | 2020-09-03 16:23 | CT ---
EXAMINATION TYPE: CT abdomen pelvis wo con DATE OF EXAM: 09/02/2020 COMPARISON: 02/03/2018 HISTORY: Endometrial cancer CT DLP: 1223.6 mGycm Automated exposure control for dose reduction was used. TECHNIQUE: Helical acquisition of images was performed from the lung bases through the pelvis. FINDINGS: LUNG BASES: No significant abnormality is appreciated. LIVER/GB: No significant abnormality is appreciated. PANCREAS: No significant abnormality is seen. SPLEEN: No significant abnormality is seen. ADRENALS: No significant abnormality is seen. KIDNEYS: No significant abnormality is seen. ADENOPATHY: None visualized. OSSEOUS STRUCTURES: Hypertrophic and degenerative change of the spine. BOWEL: Small hiatal hernia noted. Bowel gas pattern is symmetric. Appendix not seen with certainty. OTHER: Appears be a lobulated uterus appears to be enlarged. Lack of contrast reduces resolution deta il. Likely corresponds to the history is patient malignancy. No free fluid. There is soft tissue full ness in the left adnexa. Difficult to determine whether this is related to lymphadenopathy with the l eft ovary. IMPRESSION: 1. Limited exam due to lack of contrast. The uterus appears to be enlarged and lobulated likely corre sponds the patient's history of endometrial carcinoma with or without associated fibroid uterus. Ther e is soft tissue nodules in both adnexa which most likely related to the ovaries but given the size o f the uterus which blends into the adnexa and suspected soft tissue nodules therefore, recommend MRI to exclude the possibility of iliac chain lymphadenopathy.
== END | disposition home or self-care (01) ==
LOC: RADCTMAIN 14:28
PROVIDERS: ATTEND Obstetrics & Gynecology
DX: C54.1 Malignant neoplasm of endometrium (principal)
CPT/HCPCS: 74176; 80053; 81001; 85025; 85610; 85730

== ENCOUNTER 2020-09-26 21:43 | Emergency (ER) | payer BC ==
[2020-09-26] MEDS ORDERED: SODIUM CHLORIDE 0.9% 1,000 ML IV STA (22:55)
[2020-09-26] MEDS ORDERED: SODIUM CHLORIDE 0.9% 500 ML 500 ML IV STA (22:55)
[2020-09-26] MEDS ORDERED: ACETAMINOPHEN TAB 325 MG TAB PO STA (22:56)
[2020-09-26] MEDS ORDERED: cefTRIAXone IN SWFI 1,000 MG/10 ML SYRINGE IVP STA (22:56)
[2020-09-26] MEDS ORDERED: HYDROmorphone 0.5 MG/0.5 ML SYRINGE IVP STA (23:40)
--- NOTE | 2020-09-26 23:44 | ED ---
Abdominal Pain HPI - General Chief Complaint: Abdominal Pain Stated Complaint: Post Op Fever Time Seen by Provider: 09/26/20 22:40 Source: patient Mode of arrival: ambulatory - History of Present Illness Initial Comments: 50-year-old female presenting to the emergency department with a chief complaint of a fever and abdominal pain. Patient reports on 09/05/20 she underwent lapa roscopic hysterectomy with bilateral salpingo-oophorectomy at [facility] by Dr Chavarria. Patient reports ever since the procedure she has been experiencing postoperative pain. Patient reports she has been taking the Senokot and stool softeners prescribed and is having normal bowel movements. Denies any nausea or vomiting. States today she noticed a fever of 101 but denied taking any antipyretics. States that the pain is sharp in nature and across the abdomen. She denies any urinary or vaginal symptoms. Denies any hematuria, hematochezia or melena. Denies any cough or shortness of breath. Patient reports history of hypertension but does not take any antihypertensives. States she does not like taking pills. - Related Data Home Medications Medication Instructions Recorded Confirmed Acetaminophen [Tylenol Extra 500 mg PO Q6H PRN 09/26/20 09/26/20 Strength] Otc Laxative 1 tab PO DAILY PRN 09/26/20 09/26/20 Otc Stool Softner 1 tab PO DAILY PRN 09/26/20 09/26/20 Allergies Allergy/AdvReac Type Severity Reaction Status Date / Time cat dander Allergy Unknown Verified 09/26/20 23:18 fish derived Allergy Rash/Hives Verified 09/26/20 23:18 Iodinated Contrast Media Allergy Dyspnea Verified 09/26/20 23:18 [Iodinated Contrast- Oral and IV Dye] shellfish derived Allergy Anaphylaxis Verified 09/26/20 23:18 tramadol Allergy throat Verified 09/26/20 23:18 swelling Review of Systems ROS Statement: Those systems with pertinent positive or pertinent negative responses have been documented in the HPI. ROS Other: All systems not noted in ROS Statement are negative. Past Medical History Past Medical History: Asthma, GERD/Reflux, Hypertension, Musculoskeletal Disorder, Osteoarthritis (OA) Additional Past Medical History / Comment(s): irritable bowel syndrome, sciatic pain, states hx of HTN in past, Environmental allergies., Hiatal Hernia., heavy vaginal bleeding uterine fibroids History of Any Multi-Drug Resistant Organisms: None Reported Past Surgical History: Hysterectomy, Tubal Ligation Additional Past Surgical History / Comment(s): Missing bicep muscles bilaterally & muscle was removed from stomach (1974). EGD and colonoscopy . Past Anesthesia/Blood Transfusion Reactions: No Reported Reaction Additional Past Anesthesia/Blood Transfusion Reaction / Comment(s): . Past Psychological History: No Psychological Hx Reported Smoking Status: Never smoker Past Alcohol Use History: None Reported Past Drug Use History: None Reported - Past Family History Father Family Medical History: Cancer, Myocardial Infarction ([place]) Additional Family Medical History / Comment(s): Mother Family Medical History: Myocardial Infarction ([place]) Additional Family Medical History / Comment(s): Sister(s) Family Medical History: Cancer Additional Family Medical History / Comment(s): age 17 stomach cancer General Exam Limitations: no limitations General appearance: alert, in no apparent distress Head exam: Present: atraumatic, normocephalic, normal inspection Eye exam: Present: normal appearance, PERRL, EOMI Pupils: Present: normal accommodation ENT exam: Present: normal exam, normal oropharynx, mucous membranes moist Neck exam: Present: normal inspection, full ROM. Absent: tenderness, lymphadenopathy Respiratory exam: Present: normal lung sounds bilaterally. Absent: respiratory distress, wheezes, rales, rhonchi, stridor Cardiovascular Exam: Present: regular rate, normal rhythm, normal heart sounds. Absent: systolic murmur GI/Abdominal exam: Present: soft, normal bowel sounds. Absent: distended, tenderness, guarding, rebound, rigid Extremities exam: Present: normal inspection, full ROM, normal capillary refill. Absent: tenderness, pedal edema, joint swelling Back exam: Present: normal inspection, full ROM. Absent: tenderness, CVA tenderness (R), CVA tenderness (L), muscle spasm, paraspinal tenderness, vertebral tenderness Neurological exam: Present: alert, oriented X3, CN II-XII intact, normal gait Psychiatric exam: Present: normal affect, normal mood Skin exam: Present: warm, dry, intact, normal color Course Vital Signs 09/26/20 09/27/20 09/27/20 21:50 00:10 01:29 Temperature 100.1 F H 101.5 F H 100.7 F H Pulse Rate 104 H 84 92 Respiratory 18 16 16 Rate Blood Pressure 210/108 171/101 172/103 O2 Sat by Pulse 100 98 97 Oximetry Medical Decision Making - Medical Decision Making 50-year-old female presenting to the emergency department with a chief complaint of a fever and abdominal pain. On physical examination, patient is well- appearing. She is hypertensive on arrival but she does not take any medications for it. Patient does not have any complaints aside from the abdominal pain. ENT examination is unremarkable. Lungs are clear to auscultation. The abdomi nal laparoscopic incision sites are healing well. Most of the pain is located in the upper abdominal region, nonspecific. Otherwise abdomen is soft, nonacute. No signs of a decubitus ulcer. Palpable peripheral pulses. CBC CMP unremarkable. Lactic acid within normal limits. Negative Covid. UA is unremarkable. I did recommend CT of abdomen and pelvis with contrast, however patient declined even though I offered premedications. Patient states any contrast makes her "body burn". CT was obtained without contrast which showed no acute findings aside from postoperative changes. Patient was febrile here and was given antipyretics and the fever improved. At this time, I do not have a source for fever. Advised her to continue with the Tylenol Motrin. Advised her to follow-up with the primary care physician. Strict return parameters were thoroughly discussed the patient was understanding and agreeable. Case discussed with physician. - Lab Data Result diagrams: 09/27/20 00:01 09/27/20 00:01 Lab Results 09/26/20 09/26/20 09/27/20 Range/Units 23:28 23:28 00:01 WBC 8.6 (3.8-10.6) k/uL RBC 3.79 L (3.80-5.40) m/uL Hgb 12.1 (11.4-16.0) gm/dL Hct 35.9 (34.0-46.0) % MCV 94.7 (80.0-100.0) fL MCH 31.9 (25.0-35.0) pg MCHC 33.7 (31.0-37.0) g/dL RDW 12.0 (11.5-15.5) % Plt Count 492 H (150-450) k/uL MPV 7.6 Neutrophils % 74 % Lymphocytes % 17 % Monocytes % 4 % Eosinophils % 3 % Basophils % 1 % Neutrophils # 6.4 (1.3-7.7) k/uL Lymphocytes # 1.4 (1.0-4.8) k/uL Monocytes # 0.3 (0-1.0) k/uL Eosinophils # 0.3 (0-0.7) k/uL Basophils # 0.0 (0-0.2) k/uL Sodium (137-145) mmol/L Potassium (3.5-5.1) mmol/L Chloride (98-107) mmol/L Carbon Dioxide (22-30) mmol/L Anion Gap mmol/L BUN (7-17) mg/dL Creatinine (0.52-1.04) mg/dL Est GFR (CKD-EPI)AfAm (>60 ml/min/1.73 sqM) Est GFR (CKD-EPI)NonAf (>60 ml/min/1.73 sqM) Glucose (74-99) mg/dL Plasma Lactic Acid Ortiz (0.7-2.0) mmol/L Calcium (8.4-10.2) mg/dL Total Bilirubin (0.2-1.3) mg/dL AST (14-36) U/L ALT (4-34) U/L Alkaline Phosphatase (38-126) U/L Total Protein (6.3-8.2) g/dL Albumin (3.5-5.0) g/dL Urine Color Light Yellow Urine Appearance Clear (Clear) Urine pH 6.5 (5.0-8.0) Ur Specific [place] 1.013 (1.001-1.035) Urine Protein Negative (Negative) Urine Glucose (UA) Negative (Negative) Urine Ketones Negative (Negative) Urine Blood Negative (Negative) Urine Nitrite Negative (Negative) Urine Bilirubin Negative (Negative) Urine Urobilinogen 2.0 (<2.0) mg/dL Ur Leukocyte Esterase Small H (Negative) Urine RBC 3 (0-5) /hpf Urine WBC 3 (0-5) /hpf Urine Mucus Rare H (None) /hpf Coronavirus (PCR) Not Detected (Not Detectd) 09/27/20 09/27/20 Range/Units 00:01 00:01 WBC (3.8-10.6) k/uL RBC (3.80-5.40) m/uL Hgb (11.4-16.0) gm/dL Hct (34.0-46.0) % MCV (80.0-100.0) fL MCH (25.0-35.0) pg MCHC (31.0-37.0) g/dL RDW (11.5-15.5) % Plt Count (150-450) k/uL MPV Neutrophils % % Lymphocytes % % Monocytes % % Eosinophils % % Basophils % % Neutrophils # (1.3-7.7) k/uL Lymphocytes # (1.0-4.8) k/uL Monocytes # (0-1.0) k/uL Eosinophils # (0-0.7) k/uL Basophils # (0-0.2) k/uL Sodium 137 (137-145) mmol/L Potassium 3.9 (3.5-5.1) mmol/L Chloride 105 (98-107) mmol/L Carbon Dioxide 22 (22-30) mmol/L Anion Gap 10 mmol/L BUN 13 (7-17) mg/dL Creatinine 0.80 (0.52-1.04) mg/dL Est GFR (CKD-EPI)AfAm >90 (>60 ml/min/1.73 sqM) Est GFR (CKD-EPI)NonAf 88 (>60 ml/min/1.73 sqM) Glucose 102 H (74-99) mg/dL Plasma Lactic Acid Ortiz 1.0 (0.7-2.0) mmol/L Calcium 9.5 (8.4-10.2) mg/dL Total Bilirubin 0.3 (0.2-1.3) mg/dL AST 24 (14-36) U/L ALT 16 (4-34) U/L Alkaline Phosphatase 98 (38-126) U/L Total Protein 7.3 (6.3-8.2) g/dL Albumin 4.0 (3.5-5.0) g/dL Urine Color Urine Appearance (Clear) Urine pH (5.0-8.0) Ur Specific [place] (1.001-1.035) Urine Protein (Negative) Urine Glucose (UA) (Negative) Urine Ketones (Negative) Urine Blood (Negative) Urine Nitrite (Negative) Urine Bilirubin (Negative) Urine Urobilinogen (<2.0) mg/dL Ur Leukocyte Esterase (Negative) Urine RBC (0-5) /hpf Urine WBC (0-5) /hpf Urine Mucus (None) /hpf Coronavirus (PCR) (Not Detectd) - EKG Data EKG Comments: Sinus rhythm Ventricle rate 96, GA 144, QRS 72, QTC 490. Disposition Clinical Impression: Fever Disposition: HOME SELF-CARE Condition: Stable Instructions (If sedation given, give patient instructions): Fever in Adults (ED) Additional Instructions: Continue with the Tylenol and Motrin. Return to emergency department if symptoms worsen. Is patient prescribed a controlled substance at d/c from ED?: No Referrals: Mateus Gonzalez MD [Primary Care Provider] - 1-2 days Time of Disposition: 01:34
[2020-09-27] MEDS ORDERED: diphenhydrAMINE 50 MG/ML 1 ML VIAL IVP STA
[2020-09-27] MEDS ORDERED: methylPREDNISolone SOD SUCCI 125 MG/2 ML VIAL IV STA
[2020-09-27] MEDS ORDERED: FAMOTIDINE 20 MG/2 ML VIAL IV STA
[2020-09-27 00:04] LABS: Appearance,Urine Clear (Clear); Bilirubin,Urine Negative (Negative); Blood,Urine Negative (Negative); Color,Urine Light Yellow; Glucose,Urine (UA) Negative (Negative); Ketones,Urine Negative (Negative); Leukocyte Esterase,Urine Small (Negative); Mucus,Urine Rare /hpf; Nitrite,Urine Negative (Negative); PH, Urine 6.5 (5.0-8.0); Protein,Urine Negative (Negative); RBC,Urine 3 /hpf (0-5); Specific Gravity,Urine 1.013 (1.001-1.035); WBC,Urine 3 /hpf (0-5)
[2020-09-27 00:12] VITALS: RESP 16
[2020-09-27 00:18] LABS: Basophils % (A) 1 %; Eosinophils # (A) 0.3 k/uL (0-0.7); Eosinophils % (A) 3 %; HCT 35.9 % (34.0-46.0); HGB 12.1 gm/dL (11.4-16.0); Lymphocytes # (A) 1.4 k/uL (1.0-4.8); Lymphocytes % (A) 17 %; MCH 31.9 pg (25.0-35.0); MCHC 33.7 g/dL (31.0-37.0); MCV 94.7 fL (80.0-100.0); Mean Platelet Volume 7.6; Monocytes # (A) 0.3 k/uL (0-1.0); Monocytes % (A) 4 %; Neutrophils # (A) 6.4 k/uL (1.3-7.7); Neutrophils % (A) 74 %; Platelet Count 492 k/uL (150-450); RBC 3.79 m/uL (3.80-5.40); WBC 8.6 k/uL (3.8-10.6)
[2020-09-27] MEDS ORDERED: IBUPROFEN 600 MG TAB PO STA (00:24)
[2020-09-27 00:31] LABS: ALT 16 U/L (4-34); AST 24 U/L (14-36); African American GFR (CKD) >90 (>60 ml/min/1.73 sqM); Alkaline Phosphatase 98 U/L (38-126); Anion Gap 10 mmol/L; Blood Urea Nitrogen 13 mg/dL (7-17); Calcium 9.5 mg/dL (8.4-10.2); Carbon Dioxide 22 mmol/L (22-30); Chloride 105 mmol/L (98-107); Glucose 102 mg/dL (74-99); Non-African American GFR(CKD) 88 (>60 ml/min/1.73 sqM); Potassium 3.9 mmol/L (3.5-5.1); Sodium 137 mmol/L (137-145); Total Bilirubin 0.3 mg/dL (0.2-1.3); Total Protein 7.3 g/dL (6.3-8.2)
--- NOTE | 2020-09-27 00:55 | XR ---
EXAMINATION TYPE: XR chest 2V DATE OF EXAM: 09/27/2020 COMPARISON: 04/24/2017 HISTORY: Fever TECHNIQUE: FINDINGS: Heart and mediastinum are normal. Lungs are clear of infiltrate. There is no heart failure. There are no hilar masses. Bony thorax is intact. IMPRESSION: Normal chest. No change.
--- NOTE | 2020-09-27 01:01 | CT ---
EXAMINATION TYPE: CT abdomen pelvis wo con DATE OF EXAM: 09/27/2020 COMPARISON: 09/02/2020 HISTORY: post op fever. Periumbilical tenderness, hysterectomy 09-05-20 CT DLP: 1356.4 mGycm Automated exposure control for dose reduction was used. Images obtained from the diaphragm to the floor the pelvis with no contrast. Lung bases are clear of infiltrate. Heart size is fairly normal. There is no pericardial effusion. Th ere is hiatal hernia. There is no pleural effusion. There are surgical clips at the gastric fundus. L iver spleen pancreas gallbladder appear normal. The bile ducts are not dilated. There is no adrenal mass. Kidneys have normal size. There is no hydronephrosis. Ureters are not dilat ed. There is no retroperitoneal adenopathy. Bladder distends smoothly. There is no inguinal hernia. T here is some mild fat stranding in the pelvis and minimal free fluid. There is hysterectomy. There is no evidence of a pelvic mass. Appendix is lateral and appears normal. There is no evidence of free air. There is no sign of a bowel obstruction. Lumbar vertebra have normal alignment. There is no compression fracture. The bony pelvis is intact. T he hip joints are intact. IMPRESSION: Postsurgical changes with recent hysterectomy. Mild fat stranding in the pelvis without a drainable f luid collection. I do not see evidence for for definite pelvic abscess.
[2020-09-27 01:30] VITALS: BP 172/103; PULSE 92; TEMP 100.7
== END 2020-09-27 01:58 | disposition home or self-care (01) ==
LOC: EC 21:43
DX: R50.9 Fever, unspecified (principal); R10.9 Unspecified abdominal pain; I10 Essential (primary) hypertension; J45.909 Unspecified asthma, uncomplicated; K21.9 Gastro-esophageal reflux disease without esophagitis; K58.9 Irritable bowel syndrome, unspecified; M19.90 Unspecified osteoarthritis, unspecified site; Z20.822 Contact with and (suspected) exposure to COVID-19; Z88.8 Allergy status to other drugs, medicaments and biological substances; Z88.5 Allergy status to narcotic agent; Z90.710 Acquired absence of both cervix and uterus; Z90.722 Acquired absence of ovaries, bilateral
CPT/HCPCS: 36415; 80053; 83605; 85025; 81001; 87040; 87635; 71046; 74176; 99284; 96374; 96361; J0696

== ENCOUNTER 2021-12-07 12:25 | Emergency (ER) | payer BC ==
[2021-12-07 12:33] VITALS: TEMP 98
[2021-12-07] MEDS ORDERED: methylPREDNISolone SOD SUCCI 125 MG/2 ML VIAL IM ONE (12:54)
[2021-12-07] MEDS ORDERED: CYCLOBENZAPRINE 5 MG TAB PO STA (12:54)
[2021-12-07] MEDS ORDERED: KETOROLAC 15 MG/ML 1 ML VIAL IM STA (12:54)
[2021-12-07] MEDS ORDERED: IBUPROFEN 400 MG TAB PO STA (12:58)
[2021-12-07] MEDS ORDERED: cloNIDine HCL 0.1 MG TAB PO STA (13:39)
--- NOTE | 2021-12-07 13:47 | US ---
EXAMINATION TYPE: US venous doppler duplex LE RT DATE OF EXAM: 12/07/2021 1:33 PM COMPARISON: NONE CLINICAL HISTORY: pain. Pain in right leg. No hx of DVT. Patient does not take blood thinners. SIDE PERFORMED: Right TECHNIQUE: The lower extremity deep venous system is examined utilizing real time linear array sonog emeka with graded compression, doppler sonography and color-flow sonography. VESSELS IMAGED: Common Femoral Vein Deep Femoral Vein Greater Saphenous Vein * Femoral Vein Popliteal Vein Small Saphenous Vein * Proximal Calf Veins (* superficial vessels) There is normal color flow, venous waveforms, augmentation, and compressibility of the imaged right l ower extremity veins. Right Leg: No evidence of DVT in veins imaged. IMPRESSION: No evidence for deep venous thrombosis of the right lower extremity.
--- NOTE | 2021-12-07 14:16 | XR ---
EXAMINATION TYPE: XR lumbar spine 2 or 3V DATE OF EXAM: 12/07/2021 CLINICAL HISTORY: Fall injury with low back pain TECHNIQUE: Frontal and lateral images of the lumbar spine are obtained. COMPARISON: CT lumbar spine 2011 FINDINGS: There are 5 lumbar type vertebral bodies identified. The lumbar spine shows stable and sa tisfactory alignment without evidence of acute fracture or dislocation. Vertebral body heights and di sk space heights are stable and within normal limits. New mild multilevel anterior and lateral spurri ng in the lower lumbar spine. Spina bifida defect L5 level redemonstrated. Overlying soft tissue is u nremarkable. IMPRESSION: As above.
--- NOTE | 2021-12-07 14:17 | XR ---
EXAMINATION TYPE: XR Hip RT and AP Pelvis DATE OF EXAM: 12/07/2021 COMPARISON: CT abdomen and pelvis September 27, 2020 HISTORY: Pelvic and right hip pain after fall injury TECHNIQUE: A single AP view of the pelvis is obtained. Two views of the right hip are obtained. FINDINGS: There is no acute fracture/dislocation evident in the pelvis. The hip and sacroiliac join ts appear symmetric and unremarkable. Pubic symphysis is intact. Scattered overlying tiny pelvic phle boliths are present. Two views of right hip show no acute fracture or dislocation. No focal lytic or sclerotic lesion see n in the proximal right femur. The overlying soft tissue is unremarkable. IMPRESSION: There is no acute fracture or dislocation in the pelvis or right hip.
--- NOTE | 2021-12-07 15:10 | ED ---
Back Pain HPI - General Chief Complaint: Back Pain/Injury Stated Complaint: Right leg pain Time Seen by Provider: 12/07/21 12:36 Source: patient Limitations: no limitations - History of Present Illness Initial Comments: Patient is a 51-year-old female who presents to the emergency department with a chief complaint of right hip pain. Patient states symptoms started 5 days ago after she tripped and fell. The fall was witnessed. Patient did not hit her head or lose consciousness. She has not had blood thinners. Patient states she initially had some right lower back pain which has resolved. Patient states since the injury she has had consistent right hip pain that is not getting better. She reports shooting pain down her right thigh all the way to her right calf with some tingling. Denies numbness. States she has history of radicular symptoms in this lower extremity. She denies numbness and tingling in the groin region. Denies loss of bowel and bladder function. Denies leg weakness. Patient states her primary care rider sent her in for DVT rule out. She denies personal or family history of DVT and PE. Denies hormone use. Denies recent airplane travel or long car rides. - Related Data Home Medications Medication Instructions Recorded Confirmed Acetaminophen [Tylenol Extra 1,000 mg PO Q6H PRN 09/26/20 12/07/21 Strength] Hyoscyamine Sulfate [Hyoscyamine 0.125 mg SL Q4H PRN 12/07/21 12/07/21 Sulfate SL] Ibuprofen [Motrin Ib] 800 mg PO Q8H PRN 12/07/21 12/07/21 Phentermine HCl 37.5 mg PO [id number] 12/07/21 12/07/21 Previous Rx's Medication Instructions Recorded Cyclobenzaprine [Flexeril] 5 mg PO HS PRN #7 tablet 12/07/21 Ibuprofen [Motrin] 800 mg PO Q6HR PRN #30 tab 12/07/21 predniSONE 50 mg PO DAILY #5 tab 12/07/21 Allergies Allergy/AdvReac Type Severity Reaction Status Date / Time cat dander Allergy Unknown Verified 12/07/21 13:57 fish derived Allergy Rash/Hives Verified 12/07/21 13:57 Iodinated Contrast Media Allergy Dyspnea Verified 12/07/21 13:57 [Iodinated Contrast- Oral and IV Dye] shellfish derived Allergy Anaphylaxis Verified 12/07/21 13:57 tramadol Allergy throat Verified 12/07/21 13:57 swelling Review of Systems ROS Statement: Those systems with pertinent positive or pertinent negative responses have been documented in the HPI. ROS Other: All systems not noted in ROS Statement are negative. Past Medical History Past Medical History: Asthma, GERD/Reflux, Hypertension, Musculoskeletal Disorder, Osteoarthritis (OA) Additional Past Medical History / Comment(s): irritable bowel syndrome, sciatic pain, states hx of HTN in past, Environmental allergies., Hiatal Hernia., heavy vaginal bleeding uterine fibroids covid + History of Any Multi-Drug Resistant Organisms: None Reported Past Surgical History: Hysterectomy, Tubal Ligation Additional Past Surgical History / Comment(s): Missing bicep muscles bilaterally & muscle was removed from stomach (1974). EGD and colonoscopy . Past Anesthesia/Blood Transfusion Reactions: No Reported Reaction Additional Past Anesthesia/Blood Transfusion Reaction / Comment(s): . Past Psychological History: No Psychological Hx Reported Smoking Status: Never smoker Past Alcohol Use History: None Reported Past Drug Use History: None Reported - Past Family History Father Family Medical History: Cancer, Myocardial Infarction ([place]) Additional Family Medical History / Comment(s): Mother Family Medical History: Myocardial Infarction ([place]) Additional Family Medical History / Comment(s): Sister(s) Family Medical History: Cancer Additional Family Medical History / Comment(s): age 17 stomach cancer General Exam Limitations: no limitations General appearance: alert, in no apparent distress Respiratory exam: Present: normal lung sounds bilaterally. Absent: respiratory distress, wheezes, rales, rhonchi, stridor Cardiovascular Exam: Present: regular rate, normal rhythm, normal heart sounds. Absent: systolic murmur, diastolic murmur, rubs, gallop, clicks Right Hip exam: Present: normal inspection, full ROM, tenderness (greater trochanter region ), pelvic stability. Absent: swelling, ecchymosis, deformity, crepitus, dislocation, erythema, external rotation, internal rotation, shortening Upper Leg exam: Present: normal inspection, full ROM. Absent: tenderness, swelling Knee exam: Present: normal inspection, full ROM. Absent: tenderness, swelling Lower Leg exam: Present: normal inspection, full ROM. Absent: tenderness, swel ling, erythema, palpable cord, Homans' sign Ankle exam: Present: normal inspection, full ROM. Absent: tenderness, swelling Foot/Toe exam: Present: normal inspection, full ROM. Absent: tenderness, swelling Neurovascular tendon exam: Present: no vascular compromise. Absent: motor deficit Gait: observed and normal Course Vital Signs 12/07/21 12/07/21 12/07/21 12:30 13:38 14:53 Temperature 98 F Pulse Rate 93 71 80 Respiratory 16 17 Rate Blood Pressure 192/106 184/125 153/100 O2 Sat by Pulse 99 99 100 Oximetry 12/07/21 15:18 Temperature Pulse Rate 74 Respiratory 16 Rate Blood Pressure 142/95 O2 Sat by Pulse 97 Oximetry Medical Decision Making - Medical Decision Making This is a 51-year-old female presenting with right hip pain after fall. No symptoms or signs of cauda equina. Lumbar spine x-ray shows stable and satisfactory alignment without evidence of acute fracture or dislocation. There is mild multilevel anterior and lateral spurring which appears new. Right hip and pelvis x-rays negative for acute process. Ultrasound with Doppler of the right lower extremity is negative for DVT. Pain treated in the emergency department with complete resolution of symptoms. Patient's blood pressure remained elevated during her stay. Patient states that her primary care provider Dr. Gonzalez believes she has white coat syndrome as her blood pressure is only elevated when she is in the emergency department. Patient treated with clonidine which improved her blood pressure. She will be discharged with symptomatic treatment for hip pain. She is encouraged to check her blood pressure twice a day at home and record them for her primary care provider. She'll follow-up with PCP in 1-[address] Zaragoza is my attending. Disposition Clinical Impression: Mechanical back pain, Right hip pain, Radicular pain of right lower extremity, Fall, High blood pressure Disposition: HOME SELF-CARE Condition: Good Instructions (If sedation given, give patient instructions): Lumbar Radiculopathy (ED) Additional Instructions: Take medication as directed. Continue to check blood pressure at home. Follow- up with primary care provider in one to 2 days. Return to the emergency department if you experience new, concerning, or worsening symptoms. Prescriptions: Cyclobenzaprine [Flexeril] 5 mg PO HS PRN #7 tablet PRN Reason: Muscle Spasm Ibuprofen [Motrin] 800 mg PO Q6HR PRN #30 tab PRN Reason: Pain predniSONE 50 mg PO DAILY #5 tab Is patient prescribed a controlled substance at d/c from ED?: No Referrals: Mateus Gonzalez MD [Primary Care Provider] - 1-2 days Time of Disposition: 15:10
[2021-12-07 15:20] VITALS: BP 142/95; PULSE 74; RESP 16
== END 2021-12-07 15:19 | disposition home or self-care (01) ==
LOC: EC 12:25
DX: M25.551 Pain in right hip (principal); M79.661 Pain in right lower leg; M54.50 Low back pain, unspecified; J45.909 Unspecified asthma, uncomplicated; K21.9 Gastro-esophageal reflux disease without esophagitis; I10 Essential (primary) hypertension; Z91.041 Radiographic dye allergy status; Z91.013 Allergy to seafood; Z88.5 Allergy status to narcotic agent; W01.0XXA Fall on same level from slipping, tripping and stumbling without subsequent striking against object, initial encounter
CPT/HCPCS: 72100; 73502; 93971; 96372; 99284; J2930